=== PATIENT | female | born 1975 | race Caucasian/White ===

== ENCOUNTER → 2016-09-04 | Outpatient (CLI) | payer BC ==
[2016-09-04 13:30] LABS: BASO % 0.8 % (0.0-1.0); EOS # 0.2 K/mm3 (0.0-0.50); EOS % 2.8 % (0.0-3.0); LARGE UNSTAINED CELL # 0.1 K/mm3 (0.0-0.4); LARGE UNSTAINED CELL % 1.8 % (0.0-4.0); LYMPH % 37.1 % (24.0-44.0); MEAN CORPUSCULAR HEMOGLOBIN 31.5 pg (27.0-33.0); MEAN CORPUSCULAR HGB CONC 33.3 g/dl (32.0-36.5); MEAN CORPUSCULAR VOLUME 94.6 fl (80.0-96.0); MONO # 0.3 K/mm3 (0.0-0.8); MONO % 5.9 % (0.0-5.0); NEUTROPHILS # 2.8 K/mm3 (1.8-7.7); NEUTROPHILS % 51.6 % (36.0-66.0); PLATELET COUNT, AUTOMATED 275 k/mm3 (150-450); RED CELL DISTRIBUTION WIDTH 12.2 % (11.5-14.5); WHITE BLOOD COUNT 5.3 K/mm3 (4.0-10.0)
[2016-09-04 13:45] LABS: ALBUMIN 3.8 GM/DL (3.2-5.2); ALBUMIN/GLOBULIN RATIO 1.52 (1.00-1.93); ALKALINE PHOSPHATASE 90 U/L (45-117); ALT/SGPT 26 U/L (12-78); ANION GAP 5 MEQ/L (8-16); AST/SGOT 17 U/L (15-37); BILIRUBIN,TOTAL 1.2 MG/DL (0.2-1.0); BLOOD UREA NITROGEN 12 MG/DL (7-18); CALCIUM LEVEL 9.4 MG/DL (8.5-10.1); CARBON DIOXIDE LEVEL 31 MEQ/L (21-32); CHLORIDE LEVEL 108 MEQ/L (98-107); CREATININE FOR GFR 0.74 MG/DL (0.55-1.02); FERRITIN 17 NG/ML (8-252); GLOMERULAR FILTRATION RATE > 60.0 (>58); GLUCOSE, FASTING 83 MG/DL (70-105); MAGNESIUM LEVEL 2.1 MG/DL (1.8-2.4); PHOSPHORUS LEVEL 2.8 MG/DL (2.5-4.9); POTASSIUM SERUM 4.2 MEQ/L (3.5-5.1); SODIUM LEVEL 144 MEQ/L (136-145); TOTAL PROTEIN 6.3 GM/DL (6.4-8.2)
[2016-09-04 13:56] LABS: VITAMIN B12 LEVEL 555 PG/ML (247-911)
[2016-09-05 11:43] LABS: PRETREATED FOLATE FOR RBCFOL 5.1 NG/ML
== END ==
LOC: M SMT 09:46
PROVIDERS: ATTEND Surgery
DX: K91.2 Postsurgical malabsorption, not elsewhere classified (principal); Z98.84 Bariatric surgery status; E55.9 Vitamin D deficiency, unspecified

== ENCOUNTER → 2017-09-10 | Outpatient (CLI) | payer BC ==
[2017-09-10 18:32] LABS: BASO # 0.1 10^3/uL (0.0-0.2); BASO % 0.6 % (0.0-1.0); EOS # 0.2 10^3/uL (0.0-0.50); EOS % 1.7 % (0.0-3.0); HEMATOCRIT 38.3 % (36.0-47.0); HEMOGLOBIN 12.4 g/dl (12.0-16.0); IMMATURE GRANULOCYTE % 0.2 % (0-3.0); LYMPH # 2.3 10^3/uL (1.5-4.5); LYMPH % 25.5 % (24.0-44.0); MEAN CORPUSCULAR HEMOGLOBIN 30.8 pg (27.0-33.0); MEAN CORPUSCULAR HGB CONC 32.4 g/dl (32.0-36.5); MONO # 0.6 10^3/uL (0.0-0.8); MONO % 6.4 % (0.0-5.0); NEUTROPHILS # 5.8 10^3/uL (1.8-7.7); NEUTROPHILS % 65.6 % (36.0-66.0); PLATELET COUNT, AUTOMATED 307 10^3/uL (150-450); RED BLOOD COUNT 4.03 10^6/uL (4.00-5.40); RED CELL DISTRIBUTION WIDTH 12.8 % (11.5-14.5); WHITE BLOOD COUNT 8.9 10^3/uL (4.0-10.0)
[2017-09-10 18:51] LABS: ALBUMIN 3.7 GM/DL (3.2-5.2); ALBUMIN/GLOBULIN RATIO 1.37 (1.00-1.93); ALKALINE PHOSPHATASE 96 U/L (45-117); ALT/SGPT 24 U/L (12-78); ANION GAP 8 MEQ/L (8-16); AST/SGOT 15 U/L (7-37); BILIRUBIN,TOTAL 0.9 MG/DL (0.2-1.0); BLOOD UREA NITROGEN 14 MG/DL (7-18); CALCIUM LEVEL 8.7 MG/DL (8.5-10.1); CARBON DIOXIDE LEVEL 25 MEQ/L (21-32); CHLORIDE LEVEL 111 MEQ/L (98-107); CREATININE FOR GFR 0.67 MG/DL (0.55-1.30); FERRITIN 11 NG/ML (8-252); GLOMERULAR FILTRATION RATE > 60.0 (>58); GLUCOSE, FASTING 86 MG/DL (70-100); IRON (FE) 87 UG/DL (50-170); PERCENT SATURATION 25.9 % (13.2-45.0); PHOSPHORUS LEVEL 4.2 MG/DL (2.5-4.9); POTASSIUM SERUM 4.6 MEQ/L (3.5-5.1); SODIUM LEVEL 144 MEQ/L (136-145); TOTAL IRON BINDING CAPACITY 336 UG/DL (250-450); TOTAL PROTEIN 6.4 GM/DL (6.4-8.2)
[2017-09-10 18:58] LABS: TOTAL 25(OH) VITAMIN D 28.4 NG/ML (30.0-100.0)
[2017-09-10 18:59] LABS: VITAMIN B12 LEVEL 1041 PG/ML (247-911)
[2017-09-10 19:50] LABS: ESTIMATED AVERAGE GLUCOSE 114 MG/DL (60-110); HEMOGLOBIN A1c 5.6 %
[2017-09-10 20:20] LABS: HEMATOCRIT 38.3 % (36.0-47.0)
[2017-09-11 12:07] LABS: PRETREATED FOLATE FOR RBCFOL 10.6 NG/ML; RBC FOLATE 581.2 NG/ML (280-791)
== END ==
LOC: M SMT 12:12
DX: K91.2 Postsurgical malabsorption, not elsewhere classified (principal); E55.9 Vitamin D deficiency, unspecified; Z98.84 Bariatric surgery status
CPT/HCPCS: 83550

== ENCOUNTER → 2019-01-11 | Outpatient (REF) | payer BC | LOC: M LAB REF 17:14 | PROVIDERS: ATTEND Family Medicine | DX: N76.0 Acute vaginitis (principal) ==

== ENCOUNTER → 2019-04-13 | Outpatient (CLI) | payer BC ==
[2019-04-13 17:34] LABS: ALBUMIN 3.7 GM/DL (3.2-5.2); ALT/SGPT 22 U/L (12-78); BILIRUBIN,TOTAL 0.5 MG/DL (0.2-1.0); BLOOD UREA NITROGEN 11 MG/DL (7-18); CALCIUM LEVEL 8.8 MG/DL (8.5-10.1); CARBON DIOXIDE LEVEL 26 MEQ/L (21-32); CHLORIDE LEVEL 112 MEQ/L (98-107); CREATININE FOR GFR 0.73 MG/DL (0.55-1.30); FERRITIN 29 NG/ML (8-252); FREE T4 0.95 NG/DL (0.76-1.46); GLOMERULAR FILTRATION RATE > 60.0 (>58); GLUCOSE, FASTING 87 MG/DL (70-100); IRON (FE) 56 UG/DL (50-170); PERCENT SATURATION 21.6 % (13.2-45.0); POTASSIUM SERUM 4.1 MEQ/L (3.5-5.1); SODIUM LEVEL 144 MEQ/L (136-145); TOTAL IRON BINDING CAPACITY 259 UG/DL (250-450); TOTAL PROTEIN 6.3 GM/DL (6.4-8.2)
[2019-04-13 17:36] LABS: TOTAL 25(OH) VITAMIN D 35.4 NG/ML (30.0-100.0); VITAMIN B12 LEVEL 1054 PG/ML (247-911)
[2019-04-13 18:32] LABS: BASO % 0.3 % (0.0-1.0); EOS # 0.2 10^3/uL (0.0-0.5); EOS % 2.3 % (0.0-3.0); HEMATOCRIT 37.6 % (36.0-47.0); HEMOGLOBIN 12.4 g/dl (12.0-15.5); LYMPH # 2.8 10^3/uL (1.5-5.0); LYMPH % 40.6 % (24.0-44.0); MEAN CORPUSCULAR HEMOGLOBIN 32.3 pg (27.0-33.0); MEAN CORPUSCULAR VOLUME 97.9 fl (80.0-96.0); MONO # 0.4 10^3/uL (0.0-0.8); MONO % 5.6 % (0.0-5.0); NEUTROPHILS # 3.6 10^3/uL (1.5-8.5); NEUTROPHILS % 51.1 % (36.0-66.0); PLATELET COUNT, AUTOMATED 274 10^3/uL (150-450); RED BLOOD COUNT 3.84 10^6/uL (4.00-5.40)
== END ==
LOC: M LAB 16:32
PROVIDERS: ATTEND Family Medicine
DX: Z98.84 Bariatric surgery status (principal)

== ENCOUNTER 2019-09-06 11:58 | Emergency (ER) | payer BC ==
[~2019-09-06] VITALS: Ht 167.6 cm; Wt 61.4 kg
[2019-09-06 12:22] LABS: BASO % 0.3 % (0.0-1.0); EOS # 0.1 10^3/uL (0.0-0.5); EOS % 1.2 % (0.0-3.0); HEMATOCRIT 38.5 % (36.0-47.0); HEMOGLOBIN 12.7 g/dl (12.0-15.5); LYMPH # 2.5 10^3/uL (1.5-5.0); LYMPH % 25.9 % (24.0-44.0); MEAN CORPUSCULAR HEMOGLOBIN 32.2 pg (27.0-33.0); MEAN CORPUSCULAR VOLUME 97.5 fl (80.0-96.0); MONO # 0.5 10^3/uL (0.0-0.8); MONO % 4.8 % (0.0-5.0); NEUTROPHILS # 6.4 10^3/uL (1.5-8.5); NEUTROPHILS % 67.4 % (36.0-66.0); PLATELET COUNT, AUTOMATED 237 10^3/uL (150-450); RED BLOOD COUNT 3.95 10^6/uL (4.00-5.40); WHITE BLOOD COUNT 9.5 10^3/uL (4.0-10.0)
[2019-09-06] MEDS ORDERED: TOPA200T7 PO (12:22)
[2019-09-06] MEDS ORDERED: BRIN10TA4 PO (12:22)
[2019-09-06] MEDS ORDERED: D3400TAB PO (12:23)
[2019-09-06] MEDS ORDERED: VITA100T15 PO (12:23)
[2019-09-06] MEDS ORDERED: IRON240T PO (12:23)
[2019-09-06] MEDS ORDERED: FOLI1TAB11 PO (12:23)
[2019-09-06 12:32] LABS: INR 1.07; PROTHROMBIN TIME 13.6 SECONDS (11.8-14.0)
[2019-09-06 12:53] LABS: ALBUMIN 3.7 GM/DL (3.2-5.2); ALT/SGPT 36 U/L (12-78); BILIRUBIN,DIRECT 0.2 MG/DL (0.0-0.2); BILIRUBIN,TOTAL 0.6 MG/DL (0.2-1.0); BLOOD UREA NITROGEN 14 MG/DL (7-18); CALCIUM LEVEL 8.6 MG/DL (8.5-10.1); CARBON DIOXIDE LEVEL 22 MEQ/L (21-32); CHLORIDE LEVEL 113 MEQ/L (98-107); CK-MB VALUE MASS < 1.0 NG/ML (<3.6); CPK CREATINE PHOSPHOKINASE 53 U/L (26-192); CREATININE FOR GFR 0.74 MG/DL (0.55-1.30); GLOMERULAR FILTRATION RATE > 60.0 (>58); GLUCOSE, FASTING 164 MG/DL (70-100); LIPASE 122 U/L (73-393); MB/CK RELATIVE INDEX 1.89 (< OR =4); SODIUM LEVEL 141 MEQ/L (136-145); TOTAL PROTEIN 6.2 GM/DL (6.4-8.2); TROPONIN I < 0.02 NG/ML (< 0.10)
--- NOTE | 2019-09-06 12:56 | REP ---
Portable chest x-ray: Single view. History: Chest pain. Comparison study: August 02, 2008. Findings: Monitoring electrodes overlie the chest. Lungs are well inflated and clear. Pleural angles are sharp. Heart size is normal. Pulmonary vasculature is not increased. Impression: No acute disease. Electronically Signed by Frantz Velazquez MD 09/06/2019 12:48 P
--- NOTE | 2019-09-06 13:17 | REP ---
Head CT without contrast: History: Syncope. Comparison study: No comparison study. CT findings: Bone window settings demonstrate an intact bony calvarium. There is no evidence of skull fracture or incidental bony calvarial lesion. The visualized paranasal sinuses appear clear. No intraorbital abnormality is seen. On soft tissue window setting images; the lateral, third, and fourth ventricles are normal in size and position. Hernandez-white differentiation pattern is normal above and below the tentorium. There are is no evidence of intracranial hemorrhage. No mass, edema, infarction, or midline shift is seen. No extra-axial fluid collection is appreciated. Impression: Negative noncontrast head CT. Electronically Signed by Frantz Velazquez MD 09/06/2019 01:08 P
[2019-09-06 13:22] LABS: MAGNESIUM LEVEL 2.1 MG/DL (1.8-2.4)
[2019-09-06 15:59] LABS: CK-MB VALUE MASS < 1.0 NG/ML (<3.6); CPK CREATINE PHOSPHOKINASE 90 U/L (26-192); MB/CK RELATIVE INDEX 1.11 (< OR =4); TROPONIN I < 0.02 NG/ML (< 0.10)
[2019-09-06] MEDS ORDERED: HOLTER XX (16:45)
[2019-09-06 16:56] VITALS: BP 94/56
--- NOTE | 2019-09-07 07:56 | ECGEPIP ---
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
--- NOTE | 2019-09-07 08:00 | ECGEPIP ---
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
== END 2019-09-06 17:00 | disposition home or self-care (01) ==
LOC: EDBD 11:58 → M ED 11:58
DX: R55 Syncope and collapse (principal); F32.9 Major depressive disorder, single episode, unspecified; Z98.84 Bariatric surgery status; F17.218 Nicotine dependence, cigarettes, with other nicotine-induced disorders

== ENCOUNTER → 2019-09-06 | Outpatient (CLI) | payer BC ==
[~2019-09-06] MED LIST: BRIN10TA4 PO; D3400TAB PO; FOLI1TAB11 PO; HOLTER XX; IRON240T PO; TOPA200T7 PO; VITA100T15 PO
--- NOTE | 2019-09-09 16:49 | HOLTMON ---
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 No atrial fibrillation detected.Rare PACs including atrial couplets.Rare isolated PVCs.No symptomatic rhythm strips recorded. Electrocardiographically normal Holter monitor recording. Electronically Signed on 09-09-2019 16:49:06 EST by Artie Perry
== END ==
LOC: M EKG 17:24
PROVIDERS: ATTEND Emergency Medicine
DX: R55 Syncope and collapse (principal)

== ENCOUNTER → 2020-07-14 | Outpatient (CLI) | payer BC ==
[2020-07-14 11:05] LABS: BASO % 0.4 % (0.0-1.0); EOS # 0.2 10^3/uL (0.0-0.5); EOS % 2.9 % (0.0-3.0); HEMATOCRIT 38.9 % (36.0-47.0); HEMOGLOBIN 12.4 g/dl (12.0-15.5); LYMPH # 1.9 10^3/uL (1.5-5.0); LYMPH % 37.5 % (24.0-44.0); MEAN CORPUSCULAR HEMOGLOBIN 31.6 pg (27.0-33.0); MEAN CORPUSCULAR HGB CONC 31.9 g/dl (32.0-36.5); MEAN CORPUSCULAR VOLUME 99.2 fl (80.0-96.0); MONO # 0.3 10^3/uL (0.0-0.8); MONO % 6.4 % (0.0-5.0); NEUTROPHILS # 2.7 10^3/uL (1.5-8.5); NEUTROPHILS % 52.4 % (36.0-66.0); PLATELET COUNT, AUTOMATED 267 10^3/uL (150-450); RED BLOOD COUNT 3.92 10^6/uL (4.00-5.40); WHITE BLOOD COUNT 5.2 10^3/uL (4.0-10.0)
[2020-07-14 11:41] LABS: ALBUMIN 3.6 GM/DL (3.2-5.2); ALT/SGPT 38 U/L (12-78); BILIRUBIN,TOTAL 0.8 MG/DL (0.2-1.0); BLOOD UREA NITROGEN 13 MG/DL (7-18); CALCIUM LEVEL 8.8 MG/DL (8.5-10.1); CARBON DIOXIDE LEVEL 24 MEQ/L (21-32); CHLORIDE LEVEL 112 MEQ/L (98-107); CHOLESTEROL LEVEL 204 MG/DL (<200); CHOLESTEROL RISK RATIO 2.873 (<5); CREATININE FOR GFR 0.75 MG/DL (0.55-1.30); FREE T4 0.86 NG/DL (0.76-1.46); GLOMERULAR FILTRATION RATE > 60.0 (>58); GLUCOSE, FASTING 91 MG/DL (70-100); HDL CHOLESTEROL 71 MG/DL (>40); IRON (FE) 137 UG/DL (50-170); LDL CHOLESTEROL 112 MG/DL (<100); NON-HDL-C 133 MG/DL; PERCENT SATURATION 54.4 % (13.2-45.0); POTASSIUM SERUM 4.1 MEQ/L (3.5-5.1); SODIUM LEVEL 143 MEQ/L (136-145); TOTAL IRON BINDING CAPACITY 252 UG/DL (250-450); TOTAL PROTEIN 6.4 GM/DL (6.4-8.2); TRIGLYCERIDES LEVEL 103 MG/DL (<150)
[2020-07-16 10:56] LABS: TOTAL 25(OH) VITAMIN D 46.3 NG/ML (30.0-100.0); VITAMIN B12 LEVEL 1485 PG/ML (247-911)
== END ==
LOC: M LAB 09:30
PROVIDERS: ATTEND Family Medicine
DX: Z13.220 Encounter for screening for lipoid disorders (principal); Z13.29 Encounter for screening for other suspected endocrine disorder; Z13.0 Encounter for screening for diseases of the blood and blood-forming organs and certain disorders involving the immune mechanism

== ENCOUNTER → 2021-01-01 | Outpatient (CLI) | payer BC ==
[2021-01-01 19:25] LABS: BASO % 0.5 % (0.0-1.0); EOS # 0.3 10^3/uL (0.0-0.5); HEMATOCRIT 38.3 % (36.0-47.0); HEMOGLOBIN 12.5 g/dl (12.0-15.5); LYMPH # 2.4 10^3/uL (1.5-5.0); MEAN CORPUSCULAR HEMOGLOBIN 32.6 pg (27.0-33.0); MEAN CORPUSCULAR HGB CONC 32.6 g/dl (32.0-36.5); MEAN CORPUSCULAR VOLUME 99.7 fl (80.0-96.0); MONO # 0.6 10^3/uL (0.0-0.8); MONO % 6.8 % (2.0-8.0); NEUTROPHILS # 5.3 10^3/uL (1.5-8.5); NEUTROPHILS % 61.4 % (36.0-66.0); PLATELET COUNT, AUTOMATED 281 10^3/uL (150-450); RED BLOOD COUNT 3.84 10^6/uL (4.00-5.40); WHITE BLOOD COUNT 8.7 10^3/uL (4.0-10.0)
[2021-01-01 19:53] LABS: PERCENT SATURATION 23.1 % (13.2-45.0)
== END ==
LOC: M LAB 19:01
PROVIDERS: ATTEND Family Medicine
DX: Z98.84 Bariatric surgery status (principal)

== ENCOUNTER → 2021-03-20 | Outpatient (CLI) | payer BC | LOC: M LABSMTC 10:18 | PROVIDERS: ATTEND Anesthesiology | DX: Z01.812 Encounter for preprocedural laboratory examination (principal) ==

== ENCOUNTER → 2021-03-30 | Outpatient (CLI) | payer BC ==
[~2021-03-30] MED LIST changes: +CALCCAP4 PO; +CVS-161 PO; +SUMA50TA2; +SUPE5000 PO; +VITA500C19 PO; +VITMTA PO
== END ==
LOC: M LABSMTC 08:55
PROVIDERS: ATTEND Anesthesiology
DX: Z01.812 Encounter for preprocedural laboratory examination (principal); Z20.822 Contact with and (suspected) exposure to COVID-19

== ENCOUNTER 2021-04-04 12:25 | Day surgery (SDC) | payer BC ==
[~2021-04-04] VITALS: Ht 167.6 cm; Wt 65.3 kg
[~2021-04-04 12:25] MED LIST changes: +NS 1,000 ML IV ONE; +fentaNYL 100 MCG/2 ML INJECTION (J3010) As Ordered ONE
[2021-04-04] MEDS ORDERED: propofoL 200 MG/20 ML VIAL As Ordered ONE ×2 (13:34→13:35)
[2021-04-04] MEDS ORDERED: LIDOCAINE 2% 100MG/5ML SDV (FOR ANES.) As Ordered ONE (13:34)
--- NOTE | 2021-04-04 13:50 | ROOR ---
Patient Name: Trista Humphrey Procedure Date: 04/04/2021 1:38 PM Date of : 1975 Age: 45 Room: [facility] Gender: Female Note Status: Finalized Procedure: Upper GI endoscopy Indications: Iron deficiency anemia Providers: Yaw Burks Jr, MD Referring MD: Maria T BELLA DO Requesting Provider: Medicines: Propofol per Anesthesia Complications: No immediate complications. Procedure: Pre-Anesthesia Assessment: - Prior to the procedure, a History and Physical was performed, and patient medications and allergies were reviewed. The patient is competent. The risks and benefits of the procedure and the sedation options and risks were discussed with the patient. All questions were answered and informed consent was obtained. Patient identification and proposed procedure were verified by the physician and the nurse in the pre-procedure area and in the procedure room. Mental Status Examination: alert and oriented. Airway Examination: normal oropharyngeal airway and neck mobility. Respiratory Examination: clear to auscultation. CV Examination: normal. ASA Grade Assessment: II - A patient with mild systemic disease. After reviewing the risks and benefits, the patient was deemed in satisfactory condition to undergo the procedure. The anesthesia plan was to use moderate sedation / analgesia (conscious sedation). Immediately prior to administration of medications, the patient was re-assessed for adequacy to receive sedatives. The heart rate, respiratory rate, oxygen saturations, blood pressure, adequacy of pulmonary ventilation, and response to care were monitored throughout the procedure. The physical status of the patient was re-assessed after the procedure. The Endoscope was introduced through the mouth, and advanced to the jejunum. The upper GI endoscopy was accomplished without difficulty. The patient tolerated the procedure well. Findings: The upper third of the esophagus, middle third of the esophagus and lower third of the esophagus were normal. Evidence of a gastric bypass was found. A gastric pouch with a normal size was found containing shala. The staple line appeared intact. The gastrojejunal anastomosis was characterized by healthy appearing mucosa. This was traversed. The [id number] limb was characterized by healthy appearing mucosa. The examined jejunum was normal. Impression: - Normal upper third of esophagus, middle third of esophagus and lower third of esophagus. - Gastric bypass with a normal-sized pouch and intact staple line. Gastrojejunal anastomosis characterized by healthy appearing mucosa. - Normal examined jejunum. - No specimens collected. Recommendation: - Discharge patient to home (ambulatory). - Return to my office as previously scheduled. Procedure Code(s): --- Professional --- 52108, Esophagogastroduodenoscopy, flexible, transoral; diagnostic, including collection of specimen(s) by brushing or washing, when performed (separate procedure) Diagnosis Code(s): --- Professional --- Z98.84, Bariatric surgery status D50.9, Iron deficiency anemia, unspecified CPT copyright 2019 [employer]. All rights reserved. The codes documented in this report are preliminary and upon candy counter clerk review may be revised to meet current compliance requirements. Yaw Burks MD Yaw Burks Jr, MD 04/04/2021 1:49:34 PM Electronically signed by Yaw Burks Jr, MD Number of Addenda: 0 Note Initiated On: 04/04/2021 1:38 PM Estimated Blood Loss: Estimated blood loss: none.
--- NOTE | 2021-04-04 14:00 | ROOR ---
Patient Name: Trista Humphrey Procedure Date: 04/04/2021 1:38 PM Date of : 1975 Age: 45 Room: [facility] Gender: Female Note Status: Finalized Procedure: Colonoscopy Indications: Iron deficiency anemia Providers: Yaw Burks Jr, MD Referring MD: Maria T BELLA DO Requesting Provider: Medicines: Propofol per Anesthesia Complications: No immediate complications. Procedure: Pre-Anesthesia Assessment: - Prior to the procedure, a History and Physical was performed, and patient medications and allergies were reviewed. The patient is competent. The risks and benefits of the procedure and the sedation options and risks were discussed with the patient. All questions were answered and informed consent was obtained. Patient identification and proposed procedure were verified by the physician and the nurse in the pre-procedure area and in the procedure room. Mental Status Examination: alert and oriented. Airway Examination: normal oropharyngeal airway and neck mobility. Respiratory Examination: clear to auscultation. CV Examination: normal. ASA Grade Assessment: II - A patient with mild systemic disease. After reviewing the risks and benefits, the patient was deemed in satisfactory condition to undergo the procedure. The anesthesia plan was to use moderate sedation / analgesia (conscious sedation). Immediately prior to administration of medications, the patient was re-assessed for adequacy to receive sedatives. The heart rate, respiratory rate, oxygen saturations, blood pressure, adequacy of pulmonary ventilation, and response to care were monitored throughout the procedure. The physical status of the patient was re-assessed after the procedure. The Colonoscope was introduced through the anus and advanced to the cecum, identified by appendiceal orifice and ileocecal valve. The colonoscopy was performed without difficulty. The patient tolerated the procedure well. The quality of the bowel preparation was adequate. Findings: The rectum, recto-sigmoid colon, descending colon, transverse colon, hepatic flexure, ascending colon, cecum, appendiceal orifice and ileocecal valve appeared normal. A few small-mouthed diverticula were found in the sigmoid colon. Impression: - The rectum, recto-sigmoid colon, descending colon, transverse colon, hepatic flexure, ascending colon, cecum, appendiceal orifice and ileocecal valve are normal. - Diverticulosis in the sigmoid colon. - No specimens collected. Recommendation: - Discharge patient to home (ambulatory). - Repeat colonoscopy in 10 years for screening purposes. Procedure Code(s): --- Professional --- 73430, Colonoscopy, flexible; diagnostic, including collection of specimen(s) by brushing or washing, when performed (separate procedure) Diagnosis Code(s): --- Professional --- D50.9, Iron deficiency anemia, unspecified K57.30, Diverticulosis of large intestine without perforation or abscess without bleeding CPT copyright 2019 [employer]. All rights reserved. The codes documented in this report are preliminary and upon parent educator review may be revised to meet current compliance requirements. Yaw Burks MD Yaw Burks Jr, MD 04/04/2021 2:00:46 PM Electronically signed by Yaw Burks Jr, MD Number of Addenda: 0 Note Initiated On: 04/04/2021 1:38 PM Estimated Blood Loss: Estimated blood loss: none.
[2021-04-04 14:29] VITALS: BP 105/58
== END 2021-04-04 14:39 | disposition home or self-care (01) ==
LOC: M OPP 12:25
PROVIDERS: ATTEND Surgery
DX: K57.30 Diverticulosis of large intestine without perforation or abscess without bleeding (principal); D50.9 Iron deficiency anemia, unspecified; Z98.84 Bariatric surgery status; Z79.899 Other long term (current) drug therapy
CPT/HCPCS: 43235; 45378; J3010

== ENCOUNTER → 2021-04-08 | Outpatient (REF) | payer BC ==
[~2021-04-08] MED LIST changes: -NS 1,000 ML IV ONE; -fentaNYL 100 MCG/2 ML INJECTION (J3010) As Ordered ONE
== END ==
LOC: M LAB REF 17:05
PROVIDERS: ATTEND Family Medicine
DX: R30.0 Dysuria (principal); N76.0 Acute vaginitis

== ENCOUNTER → 2021-04-26 | Outpatient (CLI) | payer BC | LOC: M LAB 08:03 | PROVIDERS: ATTEND Internal Medicine Endocrinology, Diabetes & Metabolism | DX: D35.02 Benign neoplasm of left adrenal gland (principal) ==

== ENCOUNTER → 2021-05-01 | Outpatient (REF) | payer BC | LOC: M LAB REF 10:30 | PROVIDERS: ATTEND Internal Medicine Endocrinology, Diabetes & Metabolism | DX: D35.02 Benign neoplasm of left adrenal gland (principal) ==

== ENCOUNTER → 2021-05-24 | Outpatient (CLI) | payer BC ==
[~2021-05-24] MED LIST changes: +GASTROGRAFIN SOLUTION 30ML (Q9963) As Ordered ONE; +ISOVUE-370 76% 100ML VIAL As Ordered ONE
--- NOTE | 2021-05-24 13:35 | REP ---
INDICATION: LT ADRENAL GLAND NEOPLASM. COMPARISON: Gallbladder ultrasound 12/09/2012.. TECHNIQUE: Oral Gastrografin mixture 10 mL in 290 mL flavored water for 2 doses per our bowel contrast protocol followed by infusion 100 mL Isovue 370 scanning through the abdomen in arterial, venous and delayed phases. Coronal and sagittal reconstructions are provided. FINDINGS: CT abdomen: Lung bases were clear with only minimal dependent atelectatic changes posterior lower lung zones. The heart is not enlarged there is no pericardial thickening or effusion. No hiatal hernia. There has been gastric bypass evident. The liver, spleen, pancreas and small bowel loops were grossly unremarkable some of the proximal small bowel loops are mildly prominent trachea Starr the anastomotic loop with suture line in the left upper quadrant related to the gastric bypass stool and gas are seen scattered in the colon. There are just a few scattered diverticula without signs of diverticulitis or colitis. There is a 12 mm left adrenal nodule. On the arterial phase image CT attenuation is -3.8 HU. Although this is not a noncontrast study the presence of negative attenuation values indicate fat content in this arterial phase image. The aorta is without aneurysm or dissection. No periaortic, other retroperitoneal or mesenteric lymphadenopathy. Lung window review of all CT slices shows no perforation or abscess. The bone windows show visualized spine, at the posterior elements, ribs and upper sacrum iliac wings included in the field of view to be unremarkable. IMPRESSION: 1. During arterial phase imaging the 12 mm hypodense nodule in the left adrenal gland has a CT attenuation value measuring -3.8 HU and indicating the presence of fat and therefore this is a benign adrenal adenoma. On venous phase it enhances to 15 HU and on delayed phase it is at 1.2 HU. Is is a benign finding. 2. No others significant or acute finding. <Electronically signed by Torrey Hines > 05/24/21 [id number]
== END ==
LOC: M RAD 11:30
PROVIDERS: ATTEND Internal Medicine Endocrinology, Diabetes & Metabolism
DX: D35.02 Benign neoplasm of left adrenal gland (principal)
CPT/HCPCS: 74160; Q9963; Q9967

== ENCOUNTER → 2022-08-02 | Outpatient (CLI) | payer BC ==
[~2022-08-02] MED LIST changes: +AUGM875T28 PO; -D3400TAB PO; -GASTROGRAFIN SOLUTION 30ML (Q9963) As Ordered ONE; -ISOVUE-370 76% 100ML VIAL As Ordered ONE; +ONDA4TAB6 PO; +PERC5TAB12 PO; +VITA400T10 PO
== END ==
LOC: M LAB 08:15
PROVIDERS: ATTEND Internal Medicine Endocrinology, Diabetes & Metabolism
DX: D35.02 Benign neoplasm of left adrenal gland (principal)

== ENCOUNTER → 2023-04-02 | Outpatient (CLI) | payer BC ==
[~2023-04-02] MED LIST changes: +GASTROGRAFIN SOLUTION 30ML As Ordered ONE; +ISOVUE-370 76% 100ML VIAL As Ordered ONE
[2023-04-02 12:55] LABS: BASO % 0.4 % (0.0-1.0); EOS # 0.2 10^3/uL (0.0-0.5); EOS % 2.2 % (0.0-3.0); HEMATOCRIT 42.4 % (36.0-47.0); HEMOGLOBIN 14.3 g/dl (12.0-15.5); LYMPH # 2.4 10^3/uL (1.5-5.0); LYMPH % 32.7 % (24.0-44.0); MEAN CORPUSCULAR HEMOGLOBIN 32.2 pg (27.0-33.0); MEAN CORPUSCULAR HGB CONC 33.7 g/dl (32.0-36.5); MEAN CORPUSCULAR VOLUME 95.5 fl (80.0-96.0); MONO # 0.5 10^3/uL (0.0-0.8); MONO % 6.9 % (2.0-8.0); NEUTROPHILS # 4.3 10^3/uL (1.5-8.5); NEUTROPHILS % 57.7 % (36.0-66.0); PLATELET COUNT, AUTOMATED 257 10^3/uL (150-450); RED BLOOD COUNT 4.44 10^6/uL (4.00-5.40); WHITE BLOOD COUNT 7.4 10^3/uL (4.0-10.0)
[2023-04-02 13:05] LABS: ERYTHROCYTE SEDIMENTATION RATE 9 mm/hr (0-20)
[2023-04-02 13:20] LABS: ALBUMIN 3.9 G/DL (3.2-5.2); ALKALINE PHOSPHATASE 110 U/L (46-116); ALT/SGPT 37 U/L (7.0-40); AST/SGOT 32 U/L (<34); BILIRUBIN,TOTAL 0.5 MG/DL (0.3-1.2); BLOOD UREA NITROGEN 10 MG/DL (9-23); CALCIUM LEVEL 9.3 MG/DL (8.5-10.1); CARBON DIOXIDE LEVEL 27 MMOL/L (20-31); CHLORIDE LEVEL 106 MMOL/L (98-107); CREATININE FOR GFR 0.68 MG/DL (0.55-1.30); GLOMERULAR FILTRATION RATE > 60.0 (>58); GLUCOSE, FASTING 98 MG/DL (60-100); POTASSIUM SERUM 3.8 MMOL/L (3.5-5.1); SODIUM LEVEL 139 MMOL/L (136-145); TOTAL PROTEIN 6.8 G/DL (5.7-8.2)
== END ==
LOC: M RAD 12:32
PROVIDERS: ATTEND Nurse Practitioner Adult Health
DX: R10.32 Left lower quadrant pain (principal)
CPT/HCPCS: 36415; 74177; 80053; 85025; 85652; 86140; Q9963; Q9967

== ENCOUNTER → 2024-03-24 | Outpatient (CLI) | payer BC ==
[~2024-03-24] MED LIST changes: -GASTROGRAFIN SOLUTION 30ML As Ordered ONE; -ISOVUE-370 76% 100ML VIAL As Ordered ONE; +ONDA-282 PO; -ONDA4TAB6 PO
== END ==
LOC: M SOG 07:18
PROVIDERS: ATTEND Physician Assistant
DX: M25.551 Pain in right hip (principal); M25.552 Pain in left hip

== ENCOUNTER → 2024-06-02 | Outpatient (CLI) | payer BC ==
[~2024-06-02] MED LIST changes: -VITA500C19 PO; +VITA500C22 PO
[2024-06-02 09:59] LABS: BASO % 0.4 % (0.0-1.0); EOS # 0.1 10^3/uL (0.0-0.5); EOS % 1.3 % (0.0-3.0); HEMATOCRIT 42.4 % (36.0-47.0); HEMOGLOBIN 14.2 g/dl (12.0-15.5); LYMPH # 4.9 10^3/uL (1.5-5.0); LYMPH % 46.2 % (24.0-44.0); MEAN CORPUSCULAR HEMOGLOBIN 32.8 pg (27.0-33.0); MEAN CORPUSCULAR HGB CONC 33.5 g/dl (32.0-36.5); MEAN CORPUSCULAR VOLUME 97.9 fl (80.0-96.0); MONO # 0.8 10^3/uL (0.0-0.8); NEUTROPHILS # 4.7 10^3/uL (1.5-8.5); PLATELET COUNT, AUTOMATED 304 10^3/uL (150-450); RED BLOOD COUNT 4.33 10^6/uL (4.00-5.40); WHITE BLOOD COUNT 10.7 10^3/uL (4.0-10.0)
[2024-06-02 10:17] LABS: ALBUMIN 3.5 G/DL (3.2-5.2); ALKALINE PHOSPHATASE 92 U/L (35-104); ALT/SGPT 38 U/L (7.0-40); AST/SGOT 16 U/L (<34); BILIRUBIN,TOTAL 0.5 MG/DL (0.3-1.2); BLOOD UREA NITROGEN 14 MG/DL (9-23); CALCIUM LEVEL 9.7 MG/DL (8.5-10.1); CARBON DIOXIDE LEVEL 29 MMOL/L (20-31); CHLORIDE LEVEL 107 MMOL/L (98-107); CHOLESTEROL LEVEL 222 MG/DL (<200); CHOLESTEROL RISK RATIO 3.59 (<5); CREATININE FOR GFR 0.75 MG/DL (0.55-1.30); GLOMERULAR FILTRATION RATE > 60.0 (>58); GLUCOSE, FASTING 81 MG/DL (60-100); HDL CHOLESTEROL 61.8 MG/DL (>40); IRON (FE) 97 UG/DL (50-170); LDL CHOLESTEROL 122.8 MG/DL (<100); MAGNESIUM LEVEL 1.9 MG/DL (1.8-2.4); NON-HDL-C 160.2 MG/DL; POTASSIUM SERUM 4.2 MMOL/L (3.5-5.1); SODIUM LEVEL 142 MMOL/L (136-145); TOTAL 25(OH) VITAMIN D 25.8 NG/ML (20.0-100.0); TOTAL PROTEIN 6.4 G/DL (5.7-8.2); TRIGLYCERIDES LEVEL 187 MG/DL (<150)
[2024-06-02 10:18] LABS: THYROID STIMULATING HORMONE 3.955 uIU/ML (0.55-4.78)
[2024-06-02 10:19] LABS: FREE T4 1.04 NG/DL (0.89-1.76); VITAMIN B12 LEVEL 297 PG/ML (211-911)
== END ==
LOC: M LAB 08:08
PROVIDERS: ATTEND Family Medicine
DX: D50.9 Iron deficiency anemia, unspecified (principal)

== ENCOUNTER → 2024-06-30 | Outpatient (CLI) | payer BC | LOC: M PLAIMG 15:04 | PROVIDERS: ATTEND Pain Medicine Interventional Pain Medicine | DX: M54.16 Radiculopathy, lumbar region (principal); M51.369 Other intervertebral disc degeneration, lumbar region without mention of lumbar back pain or lower extremity pain; M89.38 Hypertrophy of bone, other site ==

== ENCOUNTER → 2025-01-25 | Outpatient (CLI) | payer BC | LOC: M SOG 06:54 | PROVIDERS: ATTEND Orthopaedic Surgery | DX: M25.561 Pain in right knee (principal) ==

== ENCOUNTER → 2025-02-10 | Outpatient (CLI) | payer BC | LOC: M PLAIMG 06:37 | PROVIDERS: ATTEND Orthopaedic Surgery | DX: M17.11 Unilateral primary osteoarthritis, right knee (principal) ==

== ENCOUNTER → 2025-02-21 | Outpatient (CLI) | payer BC ==
[2025-02-21 15:54] LABS: MAGNESIUM LEVEL 2.0 MG/DL (1.8-2.4)
[2025-02-21 15:56] LABS: C REACTIVE PROTEIN QUANTITATIV < 0.50 MG/DL (<1.0); CPK CREATINE PHOSPHOKINASE 103 U/L (34-145)
== END ==
LOC: M PLALAB 14:16
PROVIDERS: ATTEND Family Medicine
DX: R07.9 Chest pain, unspecified (principal)

== ENCOUNTER → 2025-07-03 | Outpatient (CLI) | payer BC ==
[~2025-07-03] MED LIST changes: +BIOT5TAB5 PO; -SUPE5000 PO
== END ==
LOC: M RAD 07:23
PROVIDERS: ATTEND Pain Medicine Interventional Pain Medicine
DX: M54.16 Radiculopathy, lumbar region (principal)